=== PATIENT | male | born 1990 | race Two or more races ===

== ENCOUNTER → 2023-03-14 | Emergency (ER) | payer OTHER ==
[~2023-03-14] VITALS: Ht 152.4 cm; Wt 77.1 kg
[~2023-03-14] MED LIST: MESALAMINE800 MG PO
[2023-03-14 21:44] LABS: HEMATOCRIT 41.3 % (39.0-48.0); MEAN CELL VOLUME 84.6 fL (80.0-100.00); MEAN CORPUSCULAR HEMOGLOBIN 28.6 pg (27.00-32.0); MEAN CORPUSCULAR HGB CONC 33.9 g/dl (32.0-36.0); PLATELET COUNT 240 K/uL (150-450); RED BLOOD COUNT 4.88 M/uL (4.00-6.00); RED CELL DISTRIBUTION WIDTH 13.6 % (11.5-14.5)
[2023-03-14 22:05] LABS: CREATININE SERUM 1.12 mg/dL (0.70-1.30); GFR 76.98; POTASSIUM 3.8 mEq/L (3.5-5.1)
== END | disposition left against medical advice (07) ==
LOC: ER 20:34
PROVIDERS: Emergency Medicine
DX: R10.84 Generalized abdominal pain (principal)